=== PATIENT | female | born 1990 | race Caucasian/White ===

== ENCOUNTER → 2020-06-27 15:11 | Outpatient (CLI) | payer OTHER, SELFPAY ==
--- NOTE | ~2020-06-27 | US_ITS ---
EXAMINATION: US OB /maternal detail DATE: 06/27/2020 15:52 INDICATION: anatomic survey. TECHNIQUE: Real-time ultrasound of the pelvis was performed. COMPARISON: None. FINDINGS: There is a single living fetus in vertex presentation. The placenta is anterior, 2.9 cm from the cer vix. heart rate is 147 beats per minute (bpm). The amniotic fluid volume is subjectively normal . The following biometric data were obtained: Biparietal diameter (BPD): 4.5 cm; head circumference (HC): 17.1 cm; abdominal circumference (AC): 14 .1 cm; femur length (FL): 2.9 cm. These measurements are concordant. Estimated weight is 284 g +/- 43 g, which correlates with 30th percentile when 11/17/20 is used as estimated date of delivery. As single measurements, these parameters are each equal to the following estimated gestational ages w ith ranges of +/- 2 standard deviations: BPD: 19 weeks 3 days (17 weeks 5 days - 21 weeks 1 days). HC: 19 weeks 5 days (18 weeks 1 days - 21 weeks 1 days). AC: 19 weeks 3 days (17 weeks 3 days - 21 weeks 4 days). FL: 19 weeks 0 days (17 weeks 1 days - 20 weeks 5 days). estimated gestational age based solely on measurements from this exam is 19 weeks 3 days +/- 1 weeks 3 days. The cerebral ventricles, cerebellum, cisterna magna, nuchal fold, and visualized portions of the spin e are normal. The diaphragm, stomach, kidneys, and bladder are normal. There are two umbilical arteri es to yield a 3-vessel cord. The cord insertion is normal. IMPRESSION: 1. Single living fetus in vertex presentation. 2. Estimated weight is 284 g +/- 43 g, which correlates with 30th percentile when 11/17/20 is u sed as estimated date of delivery. 3. heart not well visualized. Otherwise normal anatomic survey. Reviewed, dictated and finalized at location A. UNTING PROFESSIONAL IMPRESSION: 1. Single living fetus in vertex presentation. 2. Estimated weight is 284 g +/- 43 g, which correlates with 30th percen tile when 11/17/20 is used as estimated date of delivery. 3. heart not well visualized. Otherwise normal anatomic survey.
== END ==
PROVIDERS: Visit Provider Obstetrics & Gynecology
DX: Z34.82 Encounter for supervision of other normal pregnancy, second trimester (principal); Z3A.19 19 weeks gestation of pregnancy
CPT/HCPCS: 76805

== ENCOUNTER 2020-11-20 17:12 | Inpatient (IN) | payer OTHER, SELFPAY ==
[2020-11-20] VITALS (12 sets, daily range): BP systolic 128–157; BP diastolic 66–91; PULSE 87–103; RESP 18; TEMP 36.2–37; BMI 34.4
--- NOTE | 2020-11-20 17:12 | LDADM ---
This patient, Heidi Inman, was admitted to Labor/Delivery/Recovery 109 on 11/20/20 at 17:12. Plans for labor, pain management and were discussed with patient. Patient/family oriented to hospital policies and general routines including ID bracelet, bed and alarms, visiting hours, pain management, procedures, bathroom and other care routines, personal items, smoking policy, room service/diet and guest tray routines, security routines, and visiting hours. Patient/Family are encouraged to report perceived risks to care and to ask questions if they do not understand what they are told or what they should do. See OBIX for further documentation.
[2020-11-20] MEDS: DINOPROSTONE 10 MG VAG INSERT VAGINAL (18:15)
[2020-11-20 18:26] LABS: Basophils Percent Auto 0.3 % (0.2-1.2); Eosinophils Absolute Auto 0.1 K/mm3 (0-0.3); Eosinophils Percent Auto 0.5 % (0-4.4); Hematocrit 35.3 % (37.0-47.0); Hemoglobin 11.9 g/dL (12.0-15.0); Immature Granulocyte Percent A 0.8 % (0-0.5); Lymphocytes Absolute Auto 2.28 K/mm3 (0.9-3.2); Lymphocytes Percent Auto 19.1 % (18.3-44.2); Mean Corpuscular HGB Conc 33.7 g/dl (32-36); Mean Corpuscular Hemoglobin 33.4 pg (26-34); Mean Corpuscular Volume 99.2 fl (80-100); Mean Platelet Volume 12.6 fl (7.4-10.4); Neutrophils Absolute Auto 8.5 K/mm3 (1.3-6.7); Neutrophils Percent Auto 71.3 % (45.5-73.1); Platelet Count Result 174 k/mm3 (150-375); Red Blood Count 3.56 M/mm3 (4.2-5.4); Red Cell Distribution Width 13.2 % (11.5-14.5); White Blood Count 11.9 K/mm3 (4.5-10.0)
[2020-11-20] MEDS: ACETAMINOPHEN 500 MG TABLET 1000 MG PO (21:59)
[2020-11-20] MEDS: diphenhydrAMINE HCl CAP 25 MG CAPSULE 50 MG PO (21:59)
[2020-11-20] MEDS: ONDANSETRON INJ 4 MG/2 ML VIAL IV PUSH (22:49)
[2020-11-20] MEDS: fentaNYL CITRATE INJ (*CRX) 100 MCG/2 ML VIAL IV PUSH (23:01)
[2020-11-20] MEDS: LACTATED RINGERS 1,000 ML 125 ML IV CONT (23:12)
[2020-11-21] VITALS (160 sets, daily range): BP systolic 99–156; BP diastolic 56–118; PULSE 74–112; RESP 16–18; TEMP 36.2–37.3; O2SAT 98–100
[2020-11-21] MEDS: fentaNYL CITRATE INJ (*CRX) 100 MCG/2 ML VIAL IV PUSH (00:20)
[2020-11-21] MEDS: LACTATED RINGERS 1,000 ML 125 ML IV CONT ×2 (00:59→01:51)
--- NOTE | 2020-11-21 01:46 | WPDANESEPPF ---
Anes - Initial Pre Proc Eval Date/Time: 11/21/20 01:06 Surgeon: Tomi Kolb MD Pre Op Diagnosis: Induction of Labor Patient Data Age: 30 Gender: F Height: 1.63 m Weight: 91 kg Last Vital Signs Temp 36.2 C L 11/20/20 22:08 Pulse 96 11/21/20 01:45 Resp 18 11/20/20 22:08 BP 137/82 11/21/20 01:45 Pulse Ox 99 11/21/20 01:46 Allergies Allergy/AdvReac Type Severity Reaction Status Date / Time Penicillins Allergy Unknown Hives Verified 12/30/19 10:13 Home Medications Medication Instructions Recorded Confirmed Type PNV cmb#95-ferrous fumarate-FA 1 tablet PO DAILY 11/10/20 11/10/20 History [] lansoprazole 15 mg PO DAILY 11/10/20 11/10/20 History Laboratory Tests 11/20/20 11/20/20 11/20/20 18:16 18:16 18:16 WBC 11.9 K/mm3 H K/mm3 (4.5-10.0) RBC 3.56 M/mm3 L M/mm3 (4.2-5.4) Hgb 11.9 g/dL L g/dL (12.0-15.0) Hct 35.3 % L % (37.0-47.0) MCV 99.2 fl fl (80-100) MCH 33.4 pg pg (26-34) MCHC 33.7 g/dl g/dl (32-36) RDW 13.2 % % (11.5-14.5) Plt Count 174 k/mm3 k/mm3 (150-375) MPV 12.6 fl H fl (7.4-10.4) Immature Gran % (Auto) 0.8 % H % (0-0.5) Neut % (Auto) 71.3 % % (45.5-73.1) Lymph % (Auto) 19.1 % % (18.3-44.2) [place] % (Auto) 8.0 % % (2.6-8.5) Eos % (Auto) 0.5 % % (0-4.4) Baso % (Auto) 0.3 % % (0.2-1.2) Lymph # (Auto) 2.28 K/mm3 K/mm3 (0.9-3.2) [place] # (Auto) 1.0 K/mm3 H K/mm3 (0.1-0.6) Eos # (Auto) 0.1 K/mm3 K/mm3 (0-0.3) Baso # (Auto) 0.0 K/mm3 K/mm3 (0.0-0.1) Abs Immat Gran (auto) 0.10 K/mm3 H K/mm3 (0.00-0.031) Absolute Neuts (auto) 8.5 K/mm3 H K/mm3 (1.3-6.7) Absolute Nucleated RBC 0.0 K/mm3 K/mm3 (0.0-0.012) Nucleated RBC % 0.0 % % (0.0-0.2) RPR Pending Blood Type O Positive Antibody Screen Negative Patient hx anesthesia problems: none Family hx anesthesia problems: none PMFSH Family History Family History Other No pertinent family history Social History Social History Smoking status: Never smoker Second hand tobacco smoke exposure: No Substance use: never Gender identity (if verbalized by the patient): Female Spiritual care concerns: No Anes - Eval Final PreProcedure Day of Procedure 11/21/20 01:46 Patient weight: overweight Heart: regular rate and rhythm Lungs: clear to auscultation and normal air movement Airway: Mallampati scale Neurological: alert and oriented ASA classification: II Emergent: no Anesthetic plan: proceed Anesthesia type and monitoring: regional epidural and standard monitoring Informed Consent: The patient's anesthetic plan and its attendant risks and benefits were discussed with the patient/family/POA. Questions were solicited and answers provided to the satisfaction of the patient/family/POA.
--- NOTE | 2020-11-21 08:40 | WPDOBADMIT ---
Obstetrics - Admit Note Admission Note: record reviewed. Additions to the history and/or subsequent changes in the physical findings follow. 30 y/o G1 at 39 4/7 weeks here for induction of labor. Cervidil overnight. She developed active labor and is now comfortable with an epidural. Had SROM. AVSS NST reactive TOCO: contractions every 2-4 min ABD soft, nontender, gravid, vertex EXT nontender Cervix 8/100/0 A: IUP at term, here for induction of labor. P: Augment labor as needed. Anticipate .
[2020-11-21] MEDS: OXYTOCIN 30 UNITS/NS 500 ML 30 UNITS/500 ML BAG IV CONT (09:04)
[2020-11-21 09:52] LABS: Rapid Plasma Reagin Non-Reactive (NonReactive)
--- NOTE | 2020-11-21 11:38 | P.PCNOB_ITS ---
OB - Delivery Note Procedure Delivery date: 11/21/20 Procedure: Induction method: per cervidil protocol Delivery monitor: external FHT and external uterine Route of delivery: Laceration Description: Perineal - 2nd Degree Delivery repair: vicryl (3-0) Specimen: Yes (cord blood) Quantitative Blood Loss (ml): 260 Anesthesia type: Epidural Disposition: PACU Complications: None Narrative: 30 y/o G1 at 39 4/7 week gestation who presented to the hospital for induction of labor. Cervidil was placed. She developed active labor. She received an epidural for pain control. She had SROM. Her labor progressed and her cervix dilated completely. She pushed with good effort and delivered the 's head to the perineum. A loose nuchal cord was reduced and the body de livered. The nose and mouth were bulb suctioned. After a delay, the cord was clamped and cut. The was handed off the field. Cord blood was collected. The placenta delivered spontaneously and was grossly normal in appearance. The usual 3 vessel cord was noted. A second degree midline perineal laceration was sustained. This was reapproximated using 3 0 Vicryl in the usual layered fashion. Excellent hemostasis resulted as did excellent reapproximation of the normal anatomy. Needle and instrument counts were correct. The patient was taken to recovery room in stable condition. The went to the nursery in stable condition. I was present and scrubbed for the entire delivery. [place] Baby Date of : 11/21/20 Time of : 11:23 Weeks of gestation at delivery: 39 Infant gender: Female Weight (pounds): 7 Weight (ounces): 14 presentation: vertex position: Right Occiput Anterior Placenta delivery description: Spontaneous and Normal Configuration cord vessel description: 3 Vessels, Nuchal Cord and Delayed Cord Clamping score one minute: 9 score five minutes: 9
[2020-11-21] MEDS: OXYTOCIN 30 UNITS/NS 500 ML 30 UNITS/500 ML BAG 125 UNITS IV CONT (11:57)
[2020-11-21] MEDS: IBUPROFEN 600 MG TABLET PO ×2 (12:20→18:04)
[2020-11-21] MEDS: BENZOCAINE 20% AER SPR (*SP) 56 GM CAN 1 SPRAY TOPICAL (12:22)
[2020-11-21] MEDS: WITCH HAZEL 40 PADS 1 PAD TOPICAL (12:22)
--- NOTE | 2020-11-21 13:55 | PC.NURSE ---
Patient transferred to post room #291 per wheelchair from labor and delivery. Support person present. Oriented to unit, room, information board, rooming in, admission packet and security measures. Patient verbalizes understanding.
[2020-11-21] MEDS: ACETAMINOPHEN 325 MG TABLET 650 MG PO ×2 (14:47→20:42)
--- NOTE | 2020-11-21 15:15 | PC.NURSE ---
Consulted with patient, mother re ports infant fed for first feeding. was sucking on her tongue, needing several attempts to latch correctly. Reviewed infant feeding cues, frequencies, duration of feedings, feeding elimination flow sheet, and signs of adequate intake. Demonstrated stimulation techniques to wake for feeding. Assisted with to breast. Reviewed positioning/alignment in cross cradle, holding breast in U hold and guided asymmetrical latch on. Infant was fussy made several attempts to latch without a successful latch. Infant then sleepy with not waking for attempts. Suggested skin to skin and attempt again in 30 minutes. Requested mother call out for for assist.
[2020-11-21] MEDS: DOCUSATE SODIUM 100 MG CAPSULE PO (18:04)
[2020-11-21] MEDS: diphenhydrAMINE HCl CAP 25 MG CAPSULE 50 MG PO (20:42)
--- NOTE | 2020-11-21 23:45 | PM.OBDSVD ---
DS: Admitting Diagnosis Admitting Diagnosis Admitting Diagnosis: IUP at 39 4/7 weeks DS: Discharge Diagnosis Discharge Diagnosis (1) (normal spontaneous vaginal delivery): Code(s): O80 - Encounter for full-term uncomplicated delivery Status: Acute OB - DS: Summary OB Procedures : None OB Procedures Intrapartum: Spontaneous Vag Delivery OB Procedures: : None DS: Data Data Completed and Pending Labs on day of discharge: Labs from last 24 hours 11/20/20 18:16 RPR Non-reactive Discharge Plan Discharge Attending physician on discharge: Tomi Kolb Discharging Clinician: Tomi Kolb Patient Disposition: Home, Self-Care Activity: pelvic rest Diet: regular Discharge Instructions: Call or return if temperature above 100.4? F, increased abdominal pain, increased vaginal bleeding or any new problems. Stand Alone Forms: General Discharge Information Follow-up/Referrals: Tomi Kolb MD [Physician] - 6 Weeks Discharge Medications: New ibuprofen 600 mg tablet 600 mg PO Q6H PRN (Reason: cramps) Qty: 30 RF: 0 ferrous sulfate [Iron (ferrous sulfate)] 325 mg (65 mg iron) tablet 325 mg PO DAILY Qty: 30 RF: 0 docusate sodium [Colace] 100 mg capsule 100 mg PO BID PRN (Reason: constipation) Qty: 60 RF: 0 No Action PNV cmb#95-ferrous fumarate-FA [] 28 mg iron- 800 mcg Tablet 1 tablet PO DAILY RF: 0 lansoprazole 15 mg Capsule,Delayed Release(Dr/Ec) 15 mg PO DAILY RF: 0 Date of admission: 11/20/20 17:12 Primary Care Provider: Bret Carpenter Admitting Provider: Tomi Kolb Attending physician on admission: Tomi Kolb Condition: Stable
[2020-11-22] MEDS: IBUPROFEN 600 MG TABLET PO ×4 (00:20→21:05)
[2020-11-22] MEDS: ACETAMINOPHEN 325 MG TABLET 650 MG PO ×4 (02:51→22:40)
[2020-11-22 04:00] VITALS: BP 135/75; PULSE 93; RESP 16; TEMP 37; O2SAT 99
[2020-11-22 05:17] LABS: Hematocrit 29.3 % (37.0-47.0); Hemoglobin 9.9 g/dL (12.0-15.0)
[2020-11-22] MEDS: DOCUSATE SODIUM 100 MG CAPSULE PO ×2 (08:07→17:06)
[2020-11-22] MEDS: POLYSACCHARIDE IRON COMPLEX 150 MG CAPSULE PO ×2 (08:07→17:06)
[2020-11-22] MEDS: MULTIVIT/MIN/PREN/FOL AC/IRON TABLET 1 TAB PO (08:07)
--- NOTE | 2020-11-22 08:45 | WPDANESPN ---
Anes - Prog Note Post-Op Date/Time: 11/22/20 08:45 Cardiovascular status: normal Respiratory status: normal Airway patency: baseline Mental status: baseline Post-Op hydration status: normal Vital Signs: Last Vital Signs Temp 37.0 C 11/22/20 04:00 Pulse 93 11/22/20 04:00 Resp 16 11/22/20 04:00 BP 135/75 11/22/20 04:00 Pulse Ox 99 11/22/20 04:00 Pain Score (VAS): 05/15 I/O: Intake & Output 11/21/20 11/22/20 11/22/20 23:59 07:59 15:59 Intake Total 500 Balance 500 Laboratory Tests 11/22/20 03:52 11/20/20 11/22/20 18:16 03:52 Hgb 9.9 L Hct 29.3 L RPR Non-reactive Post-procedural complaints: none Patient Feedback: Patient satisfied with anesthetic care.
[2020-11-22 09:10] VITALS: BP 126/76; PULSE 92; RESP 18; TEMP 36.6; O2SAT 100
--- NOTE | 2020-11-22 10:30 | PC.NURSE ---
Mother called out for assist with feeding, reporting tenderness to nipples. Reviewed feeding cues, frequencies, duration of feedings, feeding elimination flow sheet, and signs of adequate intake. Demonstrated stimulation techniques to wake for feeding. Assisted with to breast. Reviewed positioning/alignment in cross cradle, holding breast in ?U? hold and guided asymmetrical latch on. Discussed rational for each. able to latch correctly after several attempts. Infant will eagerly attempt and draw nipple in, then quickly release latch. Once on correctly, infant nursed eagerly, with steady draws and frequent swallowing noted. Suggested mother stimulate while feeding to increase stimulate, increase intake and to assist with maintaining deep latch. Reviewed signs of a correct latch, effective nursing and suck swallow ratio. Infant would slip to shallow latch, mother reports tenderness. Demonstrated how to adjust latch more deeply while feeding. Mother reports she can feel change in latch and has no tenderness. Nipple care reviewed of lanolin after feedings, warm compresses as needed. Instructed mother to call out for RN assistance if she is unable to latch for feeding or she has discomfort with nursing.
--- NOTE | 2020-11-22 12:10 | PC.NURSE ---
Mother called out for assist with feeding, reporting has been feeding on and off for past hours. Reviewed cluster feedings and advised this is normal and may follow with a sleepy period. Infant has not had a wet in 24 hours. Mother is concerned need supplementation. Advised to give small amounts if she chooses to supplement. Report to primary RN concerning output. . Assisted with to breast. Reviewed positioning/alignment in cross cradle, holding breast in ?U? hold and guided asymmetrical latch on. Discussed rational for each. able to latch correctly. Infant nursed eagerly, with steady draws and frequent swallowing noted. Suggested mother stimulate while feeding to increase stimulate, increase intake and to assist with maintaining deep latch. Reviewed signs of a correct latch, effective nursing and suck swallow ratio. was able to maintain latch without discomfort to mother. Nipple care reviewed of lanolin after feedings, warm compresses as needed. Instructed mother to call out for RN assistance if she is unable to latch infant for feeding or she has discomfort with nursing.
--- NOTE | 2020-11-22 13:10 | PM.OBPNVD ---
OB - PN: Subj Subjective Date/time seen: 11/22/20 13:10 Narrative: Pain OK. OB - PN: Obj Data Labs CBC & Chem 7: 11/22/20 03:52 Labs: Laboratory Results - last 24 hr 11/22/20 03:52 Hgb 9.9 L Hct 29.3 L OB - PN A/P Plan Comments: A: PPD#1, doing well. P: Routine care. Exam Psych: Other: AVSS ABD soft, nontender, fundus firm EXT nontender
[2020-11-22 20:00] VITALS: BP 135/80; PULSE 95; RESP 16; TEMP 36.9; O2SAT 99
[2020-11-22] MEDS: diphenhydrAMINE HCl CAP 25 MG CAPSULE 50 MG PO (21:05)
[2020-11-23] MEDS: IBUPROFEN 600 MG TABLET PO ×2 (03:01→11:51)
[2020-11-23] MEDS: ACETAMINOPHEN 325 MG TABLET 650 MG PO (05:18)
[2020-11-23] MEDS: MULTIVIT/MIN/PREN/FOL AC/IRON TABLET 1 TAB PO (07:57)
[2020-11-23] MEDS: DOCUSATE SODIUM 100 MG CAPSULE PO (07:58)
[2020-11-23] MEDS: POLYSACCHARIDE IRON COMPLEX 150 MG CAPSULE PO (07:58)
--- NOTE | 2020-11-23 09:14 | PM.OBPNVD ---
OB - PN: Subj Subjective Date/time seen: 11/23/20 09:14 Narrative: Pain OK. Would like to go home. OB - PN: Obj Data Labs CBC & Chem 7: 11/22/20 03:52 OB - PN A/P Plan Comments: A: PPD#2, doing well. P: Home to f/u 6 weeks. Exam Psych: Other: AVSS ABD soft, nontender, fundus firm EXT nontender
[2020-11-23 09:30] VITALS: BP 135/74; PULSE 96; RESP 16; TEMP 36.6; O2SAT 99
--- NOTE | 2020-11-23 11:15 | PC.NURSE ---
Mother called out for assist with latching to left breast. Mother feels her milk is transitioning in and areola is firm. Reviewed to massage area with warm compresses then self express to soften before infant latches. Areola softened with self expression and massage. Mother was able to independently latch with appropriate positioning/alignment. She denied any nipple discomfort, with this latch. Infant is eagerly feeding nursing with long draws and freq swallowing noted. Mother is feeding as required and waking to feed if needed. Infant has had at least 8 effective feedings in the past 24 hours, and is currently meeting outcomes for weight, output, jaundice and feeding frequencies. Mother states she feels confident to continue effective at home. Reviewed transition to breast milk, signs of adequate intake, and engorgement/relief. Instructed to call ICP if intake/output less than required. Reviewed regular medications mother is taking. Information provided per [place]. Reviewed community resources on the [facility] website and in the Mom/Baby guide. Information on outpatient services provided. Mother has no further questions at this time.
[2020-11-24 11:03] VITALS: BP 136/83; PULSE 85; RESP 20; TEMP 37.2; O2SAT 100
== END 2020-11-23 13:36 | disposition home or self-care (01) | DRG 807 ==
LOC: ANHLDR 17:17 → ANHOB2 11-21 14:05
PROVIDERS: Admitting Provider Obstetrics & Gynecology; PCP Internal Medicine; Visit Provider Obstetrics & Gynecology
DX: O77.0 Labor and delivery complicated by meconium in amniotic fluid (principal); Z37.0 Single live birth; Z3A.40 40 weeks gestation of pregnancy; O70.1 Second degree perineal laceration during delivery
CPT/HCPCS: 36415; 85014; 85018; 85025; 86592; 86850; 86900; 86901; A9270; J2405; J2590; J2795; J3010; J7120

== ENCOUNTER 2022-03-27 17:48 | Emergency (ER) | payer OTHER, SELFPAY ==
--- NOTE | 2022-03-27 17:54 | ED.URI ---
HPI - URI/Sore Throat General Chief Complaint: Upper Respiratory Infection Stated Complaint: headcold pressure and ears throat Time Seen by Provider: 03/27/22 17:54 Source: patient and RN notes reviewed History of Present Illness HPI Narrative: patient is a 32-year-old female who presents to urgent care with complaints of severe head congestion, postnasal drainage, bilateral ear pressure and sore throat. Patient states that she does have a mild nonproductive cough. States that she has had it for approximately 2 weeks. Patient does have history of sinus surgery. Patient has been using Sudafed, Tylenol and Flonase without much relief. Denies any fevers. No other acute complaints. No acute distress noted. Patient aware of the plan care. Some parts of this dictation were generated by voice recognition software and may contain typographical and/or grammatical inaccuracies. Related Data Allergies Allergy/AdvReac Type Severity Reaction Status Date / Time Penicillins Allergy Unknown Hives Verified 12/30/20 07:53 Review of Systems Review of Systems: CONSTITUTIONAL: Denies fever, chills, or sweats. EYES: Denies visual changes, redness, or discharge. ENT: Reports of sinus pressure, bilateral otalgia, sore throat, postnasal drainage CARDIOVASCULAR: Denies chest pain, palpitations, or edema. RESPIRATORY: reports of nonproductive cough without dyspnea GASTROINTESTINAL: Denies abdominal pain, nausea, vomiting, or diarrhea. GENITOURINARY: Denies dysuria or hematuria. SKIN: Denies rash or itching. MUSCULOSKELETAL: Denies back pain, joint pain, or myalgia. NEUROLOGIC: reports of headache All other systems reviewed are negative, except as documented in HPI. PMFSH Family History Family History Other No pertinent family history Social History Social History (Updated 12/30/20 @ 07:52 by Ana Shelton CNA) Smoking status: Never smoker Second hand tobacco smoke exposure: No Alcohol intake: current Substance use: never Gender identity (if verbalized by the patient): Female Spiritual care concerns: No Comments At the time of my signature, I reviewed and agree with the nursing past medical, surgical, social, and family history. There is no relevant family history pertinent to the patient complaint. Exam Narrative: GENERAL: This is a well-nourished, well-developed patient, in no apparent distress. HEAD: normocephalic, atraumatic. moderate frontal sinus tenderness EYES: PERRL. Sclera clear/white. Vision is grossly intact. EARS: External ears normal, auditory canals clear and without drainage, bilateral eustachian tube dysfunction.TMs normal without perforation. Hearing grossly intact. NOSE: External nose normal with no obvious nasal discharge. bilateral erythema nares with clear yellow rhinorrhea THROAT: Mucous membranes moist, posterior pharynx clear. moderate postnasal drainage. NECK: Neck supple, non-tender without lymphadenopathy, masses or thyromegaly. CARDIOVASCULAR: Regular rate and rhythm without murmurs, gallops, or rubs. RESPIRATORY: Clear to auscultation. Breath sounds equal bilaterally. No wheezes, rales, or rhonchi. SKIN: warm, intact with no suspicious lesions or rash, good texture and turgor. NEURO: awake, alert, and oriented to person, place and time. There were no obvious focal neurologic abnormalities. EXTREMITIES: No clubbing, cyanosis, or edema. Course Course Level of Care: Express Care Visit Vital Signs Vital signs: Vital Signs Temperature 97.7 F 03/27/22 18:13 Pulse Rate 79 03/27/22 18:13 Respiratory Rate 16 03/27/22 18:13 Blood Pressure 140/81 03/27/22 18:13 Pulse Oximetry 97 03/27/22 18:13 Oxygen Delivery Room Air 03/27/22 18:13 Temperature 97.7 F 03/27/22 18:13 Pulse Rate 79 03/27/22 18:13 Respiratory Rate 16 03/27/22 18:13 Blood Pressure 140/81 03/27/22 18:13 Pulse Oximetry 97 03/27/22
[2022-03-27 18:13] VITALS: BP 140/81; PULSE 79; RESP 16; TEMP 36.5; O2SAT 97
== END 2022-03-27 18:17 | disposition home or self-care (01) ==
PROVIDERS: Emergency Provider Nurse Practitioner Family
DX: J32.9 Chronic sinusitis, unspecified (principal)
CPT/HCPCS: 99213; G0463

== ENCOUNTER 2022-04-05 08:22 | Outpatient (CLI) | payer OTHER, SELFPAY ==
[2022-04-05 18:54] LABS: Alanine Aminotransferase 18 U/L (6-35); Albumin Level 4.5 g/dL (3.5-5.1); Alkaline Phosphatase 53 U/L (38-126); Anion Gap 9 mmol/L (8-16); Aspartate Amino Transferase 51 U/L (14-36); Bilirubin,Total 0.8 mg/dL (0.2-1.3); Blood Urea Nitrogen 17 mg/dL (7-17); Calcium 8.6 mg/dL (8.4-10.2); Carbon Dioxide 24 mmol/L (22-30); Chloride 106 mmol/L (98-107); Cholesterol 170 mg/dL (0-200); Estimated Glomerular Filt Rate > 60; Glucose 74 mg/dL (65-110); HDL Direct 46 mg/dL; Potassium 4.3 mmol/L (3.4-5.0); Sodium 139 mmol/L (137-145); Triglycerides 122 mg/dL (<150)
[2022-04-05 18:57] LABS: Hematocrit 40.4 % (37.0-47.0); Hemoglobin 13.5 g/dL (12.0-15.0); Mean Corpuscular HGB Conc 33.4 g/dl (32-36); Mean Corpuscular Volume 95.7 fl (80-100); Mean Platelet Volume 10.8 fl (7.4-10.4); Platelet Count Result 304 k/mm3 (150-375); Red Blood Count 4.22 M/mm3 (4.2-5.4); Red Cell Distribution Width 12.1 % (11.5-14.5); White Blood Count 7.2 K/mm3 (4.5-10.0)
[2022-04-05 19:05] LABS: LDL Cholesterol Direct 82 mg/dL
[2022-04-05 19:20] LABS: Thyroid Stimulating Hormone 0.917 uIU/mL (0.465-4.680)
== END 2022-04-05 08:23 | disposition home or self-care (01) ==
LOC: ANHBWCLAB 08:25
PROVIDERS: PCP Family Medicine; Visit Provider Family Medicine
DX: Z00.00 Encounter for general adult medical examination without abnormal findings (principal); I47.1 Supraventricular tachycardia; J30.2 Other seasonal allergic rhinitis; E66.9 Obesity, unspecified; K21.9 Gastro-esophageal reflux disease without esophagitis; Q23.1 Congenital insufficiency of aortic valve; N13.30 Unspecified hydronephrosis; N20.0 Calculus of kidney
CPT/HCPCS: 36415; 80053; 80061; 84443; 85027

== ENCOUNTER 2022-07-04 09:38 | Outpatient (CLI) | payer BC, OTHER, SELFPAY ==
[2022-07-04 20:24] LABS: Alanine Aminotransferase 20 U/L (6-35); Albumin Level 4.6 g/dL (3.5-5.1); Alkaline Phosphatase 62 U/L (38-126); Aspartate Amino Transferase 61 U/L (14-36); Bilirubin,Total 0.5 mg/dL (0.2-1.3)
[2022-07-04 21:34] LABS: Hepatitis B Surface Antigen Negative (Negative)
[2022-07-04 21:40] LABS: HAV RESULT Negative (Negative); Hepatitis B Core IgM Result Negative (Negative)
[2022-07-04 21:52] LABS: Hepatitis C Virus Antibody Negative (Negative)
== END 2022-07-04 09:39 | disposition home or self-care (01) ==
LOC: ANHBWCLAB 09:39
PROVIDERS: PCP Family Medicine; Visit Provider Family Medicine
DX: R74.8 Abnormal levels of other serum enzymes (principal)
CPT/HCPCS: 36415; 80074; 80076

== ENCOUNTER 2023-02-27 15:27 | Outpatient (CLI) | payer BC, OTHER, SELFPAY ==
[2023-02-27 20:37] LABS: Alanine Aminotransferase 19 U/L (6-35); Albumin Level 4.5 g/dL (3.5-5.1); Alkaline Phosphatase 39 U/L (38-126); Aspartate Amino Transferase 71 U/L (14-36); Bilirubin,Total 0.6 mg/dL (0.2-1.3)
== END 2023-02-27 15:28 | disposition home or self-care (01) ==
LOC: ANHBWCLAB 15:32
PROVIDERS: PCP Family Medicine; Visit Provider Family Medicine
DX: R74.01 Elevation of levels of liver transaminase levels (principal)
CPT/HCPCS: 36415; 80076

== ENCOUNTER 2023-04-08 08:56 | Outpatient (CLI) | payer BC, OTHER, SELFPAY ==
[2023-04-08 19:28] LABS: Hematocrit 36.7 % (37.0-47.0); Hemoglobin 11.8 g/dL (12.0-15.0); Mean Corpuscular HGB Conc 32.2 g/dl (32-36); Mean Corpuscular Hemoglobin 32.8 pg (26-34); Mean Corpuscular Volume 101.9 fl (80-100); Mean Platelet Volume 11.7 fl (7.4-10.4); Platelet Count Result 171 k/mm3 (150-375); Red Cell Distribution Width 12.1 % (11.5-14.5); White Blood Count 2.9 K/mm3 (4.5-10.0)
[2023-04-08 21:28] LABS: Cholesterol 123 mg/dL (0-200); HDL Direct 50 mg/dL; Triglycerides 75 mg/dL (<150)
[2023-04-08 21:45] LABS: LDL Cholesterol Direct 52 mg/dL
== END 2023-04-08 08:57 | disposition home or self-care (01) ==
PROVIDERS: PCP Family Medicine; Visit Provider Family Medicine
DX: Z00.00 Encounter for general adult medical examination without abnormal findings (principal); G25.81 Restless legs syndrome; G43.101 Migraine with aura, not intractable, with status migrainosus
CPT/HCPCS: 36415; 80061; 85027

== ENCOUNTER 2024-01-30 08:40 | Outpatient (RCR) | payer BC, OTHER, SELFPAY ==
[2023-12-17 12:20] VITALS: BP 123/62; PULSE 103
[2023-12-24 12:41] VITALS: BP 114/71; PULSE 103
[2023-12-31 10:18] VITALS: BP 120/54; PULSE 102
[2024-01-07 07:40] VITALS: BP 123/71; PULSE 109
[2024-01-16 09:51] VITALS: BP 126/70; PULSE 95
[2024-01-21 17:15] VITALS: BP 124/79; PULSE 97
[2024-01-30 10:11] VITALS: BP 118/75; PULSE 93
== END 2024-03-09 09:54 | disposition home or self-care (01) ==
LOC: ANHOBOP 08:40
PROVIDERS: PCP Family Medicine; Visit Provider Obstetrics & Gynecology
DX: Z34.93 Encounter for supervision of normal pregnancy, unspecified, third trimester (principal); Z3A.32 32 weeks gestation of pregnancy
CPT/HCPCS: 59025

== ENCOUNTER 2024-02-07 05:07 | Inpatient (IN) | payer BC, OTHER, SELFPAY ==
[2024-02-07] VITALS (67 sets, daily range): BP systolic 111–153; BP diastolic 55–94; PULSE 76–108; RESP 18; TEMP 36.1–36.8; O2SAT 97–100; BMI 36.7
--- NOTE | 2024-02-07 05:50 | LDADM ---
This patient, Heidi Inman, was admitted to Labor/Delivery/Recovery 104 on 02/07/24 at 05:07. Plans for labor, pain management and were discussed with patient. Patient/family oriented to hospital policies and general routines including ID bracelet, bed and alarms, visiting hours, pain management, procedures, bathroom and other care routines, personal items, smoking policy, room service/diet and guest tray routines, security routines, and visiting hours. Patient/Family are encouraged to report perceived risks to care and to ask questions if they do not understand what they are told or what they should do. See OBIX for further documentation.
[2024-02-07 05:59] LABS: Basophils Percent Auto 0.3 % (0.2-1.2); Eosinophils Absolute Auto 0.1 K/mm3 (0-0.3); Eosinophils Percent Auto 0.6 % (0-4.4); Hematocrit 35.2 % (37.0-47.0); Immature Granulocyte Absolute 0.13 K/mm3 (0.00-0.031); Immature Granulocyte Percent A 1.1 % (0-0.5); Lymphocytes Absolute Auto 2.44 K/mm3 (0.9-3.2); Lymphocytes Percent Auto 21.1 % (18.3-44.2); Mean Corpuscular HGB Conc 34.1 g/dl (32-36); Mean Corpuscular Hemoglobin 33.2 pg (26-34); Mean Corpuscular Volume 97.5 fl (80-100); Mean Platelet Volume 11.9 fl (7.4-10.4); Monocytes Absolute Auto 0.8 K/mm3 (0.1-0.6); Monocytes Percent Auto 6.5 % (2.6-8.5); Neutrophils Absolute Auto 8.2 K/mm3 (1.3-6.7); Neutrophils Percent Auto 70.4 % (45.5-73.1); Platelet Count Result 144 k/mm3 (150-375); Red Blood Count 3.61 M/mm3 (4.2-5.4); Red Cell Distribution Width 13.6 % (11.5-14.5); White Blood Count 11.6 K/mm3 (4.5-10.0)
[2024-02-07] MEDS: LACTATED RINGERS 1,000 ML 125 ML IV CONT ×3 (06:33→13:44)
[2024-02-07] MEDS: OXYTOCIN 30 UNITS/NS 500 ML 30 UNITS/500 ML BAG IV CONT (06:33)
[2024-02-07 06:47] LABS: Glucose Point of Care 85 mg/dl (65-105)
[2024-02-07 06:50] LABS: HIV 1/2 Ab P24 Ag Result Negative (Negative)
[2024-02-07 07:29] LABS: Add Urine Microscopic? NO; Appearance Urine Clear (Clear); Bilirubin Urine Negative (Negative); Blood Urine Negative (Negative); Color Urine Yellow (Yellow); Glucose Urine UA Negative (Negative); Ketones Urine Negative (Negative); Leukocyte Esterase Ur Negative LEU/UL (Negative); Nitrate Urine Negative (Negative); Protein Urine Negative (Negative); Specific Grav Ur 1.006 (1.001-1.035); Urobilinogen Urine 0.2 mg/dL (<2.0); pH Urine 6.5 (5.0-9.0)
--- NOTE | 2024-02-07 08:40 | WPDOBADMIT ---
Obstetrics - Admit Note Admission Note: record reviewed. Additions to the history and/or subsequent changes in the physical findings follow. 34 y/o at 40 weeks here for scheduled induction of labor. GBS neg. A1DM, well-controlled. 2VC. AVSS NST reactive TOCO: contractions irregularly ABD soft, nontender, gravid, vertex EXT nontender Cervix 2-3/50/-2. AROM with clear fluid. Accucheck 86 A: IUP at 40 weeks, A1DM. P: Oxytocin. Monitor accuchecks. Anticipate .
[2024-02-07 09:08] LABS: Rapid Plasma Reagin Non-Reactive (NonReactive)
--- NOTE | 2024-02-07 10:45 | WPDANESEPP ---
Anes - Eval Pre Procedure Procedure: labor epidural Date/Time: 02/07/24 10:45 Surgeon: Cortes Preop Diagnosis: Pain during labor Pre Op Diagnosis: IOL Patient Data Age: 34 Gender: F Height: 1.63 m Weight: 97 kg Last Vital Signs Pulse 86 02/07/24 10:31 BP 141/74 H 02/07/24 10:31 Allergies Allergy/AdvReac Type Severity Reaction Status Date / Time Penicillins Allergy Unknown Hives Verified 04/08/23 08:00 Home Medications Medication Instructions Recorded Confirmed Type fluticasone propionate 50 1 - 2 spray intranasal DAILY PRN 03/27/21 01/21/24 Rx mcg/actuation nasal allergy symptoms #18.2 mL spray,suspension (Flonase Allergy Relief) aspirin 81 mg chewable tablet 1 tablet PO DAILY 01/21/24 01/21/24 History vit#24-iron amino acid 1 tablet PO DAILY 01/21/24 01/21/24 History chelat-folic acid 30 mg-975 mcg tablet Laboratory Tests 02/07/24 02/07/24 02/07/24 05:22 06:43 07:13 WBC 11.6 H K/mm3 (4.5-10.0) RBC 3.61 L M/mm3 (4.2-5.4) Hgb 12.0 g/dL (12.0-15.0) Hct 35.2 L % (37.0-47.0) MCV 97.5 fl (80-100) MCH 33.2 pg (26-34) MCHC 34.1 g/dl (32-36) RDW 13.6 % (11.5-14.5) Plt Count 144 L k/mm3 (150-375) MPV 11.9 H fl (7.4-10.4) Immature Gran % (Auto) 1.1 H % (0-0.5) Neut % (Auto) 70.4 % (45.5-73.1) Lymph % (Auto) 21.1 % (18.3-44.2) [place] % (Auto) 6.5 % (2.6-8.5) Eos % (Auto) 0.6 % (0-4.4) Baso % (Auto) 0.3 % (0.2-1.2) Lymph # (Auto) 2.44 K/mm3 (0.9-3.2) [place] # (Auto) 0.8 H K/mm3 (0.1-0.6) Eos # (Auto) 0.1 K/mm3 (0-0.3) Baso # (Auto) 0.0 K/mm3 (0.0-0.1) Abs Immat Gran (auto) 0.13 H K/mm3 (0.00-0.031) Absolute Neuts (auto) 8.2 H K/mm3 (1.3-6.7) Absolute Nucleated RBC 0.000 K/mm3 (0.0-0.012) Nucleated RBC % 0.0 % (0.0-0.2) POC Capillary Glucose 85 mg/dl (65-105) Urine Color Yellow (Yellow) Urine Appearance Clear (Clear) Urine pH 6.5 (5.0-9.0) Ur Specific [place] 1.006 (1.001-1.035) Urine Protein Negative mg/dL (Negative) Urine Glucose (UA) Negative mg/dL (Negative) Urine Ketones Negative mg/dL (Negative) Ur Blood (Man) Negative (Negative) Urine Nitrate Negative (Negative) Urine Bilirubin Negative (Negative) Urine Urobilinogen 0.2 mg/dL (<2.0) Leukocyte Esterase Rfl Negative TRICE/UL (Negative) RPR Non-reactive (NonReactive) HIV 1&2 Ab/P24 Ag 4thGn Negative (Negative) Blood Type O Positive Antibody Screen Negative Patient hx anesthesia problems: none Family hx anesthesia problems: post op nausea/vomiting Results Review: All pre-operative results and documents have been reviewed as part of the pre-operative evaluation. [facility] Family History Family History Father History of ETOH abuse Grandparent History of ETOH abuse Grandparent Diabetes mellitus Other No pertinent family history Social History Social History Smoking status: Never smoker Second hand tobacco smoke exposure: No Alcohol intake: current Substance use: never Do You Feel Safe in your Home?: Yes Lack of Transportation: No Lack of Food: Never True Current Housing: I Have Housing Concerned About Future Housing: No Difficulty Paying Gas/Electric Bills: No Difficulty Paying for Meds: No Currently Unemployed: No Education: Bachelor's Degree Difficulty w/ Childcare or Family Care: No Gender identity (if verbalized by the patient): Female Spiritual care concerns: No
[2024-02-07 12:05] LABS: Glucose Point of Care 97 mg/dl (65-105)
--- NOTE | 2024-02-07 12:23 | PM.OBPNLAB ---
Pain Control Date/time seen: 02/07/24 12:23 Comments: Feeling more contractions. Pelvic Exam Dilation (cm): 3 Effacement (%): 50 station: -2 Comments: IUPC placed. Contractions Contraction frequency: 3 Contraction pattern: Regular Status status: Category l Assessment and Plan Comments: IUPC placed. Continue oxytocin.
[2024-02-07 14:00] LABS: Glucose Point of Care 83 mg/dl (65-105)
[2024-02-07 15:12] LABS: Glucose Point of Care 62 mg/dl (65-105)
[2024-02-07] MEDS: SODIUM CHLORIDE 0.9% IV 300 ML 600 ML I-UTERINE (15:33)
[2024-02-07 16:56] LABS: Glucose Point of Care 63 mg/dl (65-105)
--- NOTE | 2024-02-07 17:10 | PM.OBPNLAB ---
Pain Control Date/time seen: 02/07/24 17:10 Comments: Comfortable with epidural Pelvic Exam Dilation (cm): 10 Effacement (%): 100 station: +1 Contractions Contraction frequency: 3 Contraction pattern: Regular Status status: Category l Assessment and Plan Comments: Begin pushing.
--- NOTE | 2024-02-07 17:54 | P.PCNOB_ITS ---
OB - Vaginal Delivery Note Procedure Delivery date: 02/07/24 Events: Gestational Diabetes Induction method: Per Pitocin Protocol Delivery augmentation: Rupture of Membranes Delivery monitor: External FHT, External Uterine and Internal Uterine Route of delivery: Episiotomy description: None Laceration Description: Perineal - 2nd Degree Delivery repair: vicryl (3-0) Specimen: Yes (cord blood, placenta) Quantitative Blood Loss (ml): 450 Anesthesia type: Epidural Disposition: PACU Complications: None Narrative: 34 y/o at 40 weeks gestation who presented to the hospital for induction of labor. Oxytocin was administered intravenously. Amniotomy was performed with return of clear fluid. Accuchecks were normal throughout labor. She received an epidural for pain control. Her labor progressed and her cervix dilated completely. She pushed with good effort and delivered the infant's head to the perineum, followed by the body. The nose and mouth were bulb suctioned. After a delay, the cord was clamped and cut. The was handed off the field. Cord blood was collected. The placenta delivered spontaneously and was grossly normal in appearance. The usual 3 vessel cord was noted. A second degree midline perineal laceration was sustained. This was reapproximated using 3 0 Vicryl in the usual layered fashion. Excellent hemostasis resulted as did excellent reapproximation of the normal anatomy. Needle and instrument counts were correct. The patient was taken to recovery room in stable condition. The went to the nursery in stable condition. I was present and scrubbed for the entire delivery. [place] Baby Date of : 02/07/24 Time of : 17:28 Gestational Age by Date: 40 gender: Male Weight (pounds): 9 Weight (ounces): 2 presentation: vertex position: Left Occiput Anterior Placenta delivery description: Spontaneous and Normal Configuration Cord Vessel Description: 2 Vessels and Delayed Cord Clamping
--- NOTE | 2024-02-07 17:56 | PM.OBDSVD ---
DS: Admitting Diagnosis Discharge Date 02/09/24 Admitting Diagnosis IUP at 40 weeks 2 vessel cord A1DM DS: Discharge Diagnosis Discharge Diagnosis (1) (normal spontaneous vaginal delivery): Code(s): O80 - Encounter for full-term uncomplicated delivery Status: Acute (2) Absence of umbilical artery: Code(s): Q27.0 - Congenital absence and hypoplasia of umbilical artery Status: Acute (3) Gestational diabetes mellitus (GDM) affecting second : Code(s): O24.419 - Gestational diabetes mellitus in , unspecified control Status: Acute OB - DS: Summary OB Procedures : None OB Procedures Intrapartum: Spontaneous Vag Delivery OB Procedures: : None Peripartum Data Laceration Description: Perineal - 2nd Degree Episiotomy description: None Time Spent with Patient Time attestation: Total time spent providing and/or coordinating discharge services: DS: Data Data Completed and Pending Labs on day of discharge: Labs from last 24 hours 02/07/24 02/07/24 02/07/24 16:54 15:10 13:58 WBC RBC Hgb Hct MCV MCH MCHC RDW Plt Count MPV Immature Gran % (Auto) Neut % (Auto) Lymph % (Auto) [place] % (Auto) Eos % (Auto) Baso % (Auto) Lymph # (Auto) [place] # (Auto) Eos # (Auto) Baso # (Auto) Abs Immat Gran (auto) Absolute Neuts (auto) Absolute Nucleated RBC Nucleated RBC % POC Capillary Glucose 63 L 62 L 83 Urine Color Urine Appearance Urine pH Ur Specific [place] Urine Protein Urine Glucose (UA) Urine Ketones Ur Blood (Man) Urine Nitrate Urine Bilirubin Urine Urobilinogen Leukocyte Esterase Rfl RPR HIV 1&2 Ab/P24 Ag 4thGn Blood Type Antibody Screen 02/07/24 02/07/24 02/07/24 12:01 07:13 06:43 WBC RBC Hgb Hct MCV MCH MCHC RDW Plt Count MPV Immature Gran % (Auto) Neut % (Auto) Lymph % (Auto) [place] % (Auto) Eos % (Auto) Baso % (Auto) Lymph # (Auto) [place] # (Auto) Eos # (Auto) Baso # (Auto) Abs Immat Gran (auto) Absolute Neuts (auto) Absolute Nucleated RBC Nucleated RBC % POC Capillary Glucose 97 85 Urine Color Yellow Urine Appearance Clear Urine pH 6.5 Ur Specific [place] 1.006 Urine Protein Negative Urine Glucose (UA) Negative Urine Ketones Negative Ur Blood (Man) Negative Urine Nitrate Negative Urine Bilirubin Negative Urine Urobilinogen 0.2 Leukocyte Esterase Rfl Negative RPR HIV 1&2 Ab/P24 Ag 4thGn Blood Type Antibody Screen 02/07/24 05:22 WBC 11.6 H RBC 3.61 L Hgb 12.0 Hct 35.2 L MCV 97.5 MCH 33.2 MCHC 34.1 RDW 13.6 Plt Count 144 L MPV 11.9 H Immature Gran % (Auto) 1.1 H Neut % (Auto) 70.4 Lymph % (Auto) 21.1 [place] % (Auto) 6.5 Eos % (Auto) 0.6 Baso % (Auto) 0.3 Lymph # (Auto) 2.44 [place] # (Auto) 0.8 H Eos # (Auto) 0.1 Baso # (Auto) 0.0 Abs Immat Gran (auto) 0.13 H Absolute Neuts (auto) 8.2 H Absolute Nucleated RBC 0.000 Nucleated RBC % 0.0 POC Capillary Glucose Urine Color Urine Appearance Urine pH Ur Specific [place] Urine Protein Urine Glucose (UA) Urine Ketones Ur Blood (Man) Urine Nitrate Urine Bilirubin Urine Urobilinogen Leukocyte Esterase Rfl RPR Non-reactive HIV 1&2 Ab/P24 Ag 4thGn Negative Blood Type O Positive Antibody Screen Negative Discharge Plan Discharge Attending physician on discharge: Tomi Kolb Discharging Clinician: Tomi Kolb Patient Disposition: Home, Self-Care Activity: pelvic rest Diet: regular Discharge Instructions: Call or return if temperature above 100.4? F, increased abdominal pain, increased vaginal bleeding or any new problems. Stand Alone Forms: General Discharge Information Follow-up/Referrals: Tomi Kolb MD [Physician] - [facility]
[2024-02-07] MEDS: OXYTOCIN 30 UNITS/NS 500 ML 30 UNITS/500 ML BAG 125 UNITS IV CONT (17:59)
[2024-02-07] MEDS: IBUPROFEN 600 MG TABLET PO (19:34)
[2024-02-07] MEDS: ACETAMINOPHEN 325 MG TABLET 650 MG PO (19:35)
[2024-02-07] MEDS: WITCH HAZEL 40 PADS 1 PAD TOPICAL (19:36)
[2024-02-07] MEDS: BENZOCAINE 20% AER SPR (*SP) 56 GM CAN 1 SPRAY TOPICAL (19:36)
--- NOTE | 2024-02-07 20:33 | OBPPTRN ---
Patient transferred to post room #292 via wheelchair @ 2032. Support person present. Oriented to unit, room, information board, rooming in, admission packet and security measures. Patient verbalizes understanding.
[2024-02-07] MEDS: HYDROcodone/acetaminophen (*CRX) 5-325 MG TABLET 1 TAB PO (23:32)
[2024-02-08 01:30] VITALS: BP 117/56; PULSE 81; RESP 18; TEMP 36.1; O2SAT 98
[2024-02-08] MEDS: IBUPROFEN 600 MG TABLET PO ×4 (01:30→20:20)
[2024-02-08 04:20] LABS: Hematocrit 29.6 % (37.0-47.0)
[2024-02-08 05:10] VITALS: BP 122/64; PULSE 79; RESP 18; TEMP 36.6; O2SAT 99
[2024-02-08] MEDS: ACETAMINOPHEN 325 MG TABLET 650 MG PO ×2 (05:30→11:30)
[2024-02-08] MEDS: DOCUSATE SODIUM 100 MG CAPSULE PO ×2 (07:49→17:26)
[2024-02-08 07:50] VITALS: BP 119/69; PULSE 78; RESP 16; TEMP 36.3; O2SAT 100
[2024-02-08] MEDS: MULTIVIT/MIN/PREN/FOL AC/IRON TABLET 1 TAB PO (07:50)
[2024-02-08] MEDS: LANOLIN (LANSINOH) 7.5 GM CREAM 1 APPLIC TOPICAL (07:51)
--- NOTE | 2024-02-08 08:33 | PM.OBPNVD ---
OB - PN: Subj Subjective Date/time seen: 02/08/24 08:33 Narrative: Pain OK. Would like circumcision for son. OB - PN: Obj Data Labs 02/08/24 03:59 Labs: Laboratory Results - last 24 hr 02/07/24 02/07/24 02/07/24 05:22 12:01 13:58 Hgb Hct POC Capillary Glucose 97 83 RPR Non-reactive 02/07/24 02/07/24 02/08/24 15:10 16:54 03:59 Hgb 10.0 L Hct 29.6 L POC Capillary Glucose 62 L 63 L RPR OB - PN A/P Plan day: 1 Comments: A: PPD#1, doing well. P: Reviewed circ. Routine care. Exam Psych: Other: AVSS ABD soft, nontender, fundus firm EXT nontender
[2024-02-08] MEDS: PHENYLEPH/MINERAL OIL/PETROLAT OINTMENT 57 GM 1 APPLIC RECTAL (09:00)
[2024-02-08 11:30] VITALS: BP 127/72; PULSE 93; RESP 16; TEMP 36.7; O2SAT 100
--- NOTE | 2024-02-08 12:21 | WPDANLDPN2 ---
Anes-Prog Note L&D Date/Time: 02/08/24 12:21 Comfortable throughout: labor and delivery Neuraxial method: epidural Epidural/Spinal procedure site: clean & non-tender Neuro status: Neuro function grossly intact. Cardiovascular status: normal Respiratory status: normal Airway patency: baseline Mental status: baseline Post-Op hydration status: normal Vital Signs: Last Vital Signs Temp 36.6 C 02/08/24 05:10 Pulse 79 02/08/24 05:10 Resp 18 02/08/24 05:10 BP 122/64 02/08/24 05:10 Pulse Ox 99 02/08/24 05:10 O2 Del Method Room Air 02/07/24 21:07 Pain score (VAS): 3/10 I/O: Intake & Output 02/07/24 02/08/24 02/08/24 23:59 07:59 15:59 Intake Total 500 Output Total 625 Balance -125 Post-procedural complaints: none Patient feedback: Patient satisfied with anesthetic care.
[2024-02-08] MEDS: HYDROcodone/acetaminophen (*CRX) 5-325 MG TABLET 1 TAB PO ×2 (15:26→23:00)
[2024-02-08] MEDS: DIBUCAINE 1% OINTMENT 30 GM TUBE 1 APPLIC TOPICAL (15:31)
[2024-02-08] MEDS: WITCH HAZEL 40 PADS 1 PAD TOPICAL (15:33)
--- NOTE | 2024-02-08 17:45 | PC.NURSE ---
Introductions were made, then consulted with patient to assess needs related to . Mother led the conversation with her?plans to feed?her infant and the?experience so far. Encouraged understanding of the benefits of stimulating her breast consistently (pumping log given), responsive feeding, feeding on demand (aiming for 8-12 times in 24 hours, about every 2-3 hours), milk production, building/maintaining a milk supply, duration of feeding, signs of adequate intake/output and how to record on the feeding sheet. Mother works well with her attempting to breastfeed for a few minutes at some feedings. This was IVF and we discussed the hormonal nature of milk production and that each is different. She has a successful experience with her first baby and has a lot of doubt with the amount of colostrum she has produced today. Encouraged her that this is a typical amount for most new mothers and that she may still have a full milk supply with regular pumping. Even if she has a low milk supply, it benefits her and baby to continue as long as she is able to or desires to do so. Mother voiced understanding of responsive feedings, hand expressed colostrum, pumping schedule, milk production expectations and when to expect her supply to increase (by day 3-4). Patient states she will continue to try this plan for a week and see how her supply is. Patient has the phone number to call for questions or an appointment. Resources used for education were facilitated with the pumping log, Inpatient/outpatient resources, feeding sheet, name written on the communication board, and the mom/baby guide. Parents voiced understanding of information, demonstrated learning and will call if there is a request for assistance. Reported to the Primary RN.
[2024-02-08 19:20] VITALS: BP 125/57; PULSE 86; RESP 18; TEMP 36.8
[2024-02-09] MEDS: IBUPROFEN 600 MG TABLET PO ×2 (02:23→09:20)
[2024-02-09] MEDS: MULTIVIT/MIN/PREN/FOL AC/IRON TABLET 1 TAB PO (07:35)
[2024-02-09] MEDS: DOCUSATE SODIUM 100 MG CAPSULE PO (07:35)
[2024-02-09] MEDS: HYDROcodone/acetaminophen (*CRX) 5-325 MG TABLET 1 TAB PO ×2 (07:35→15:05)
[2024-02-09] MEDS: PHENYLEPH/MINERAL OIL/PETROLAT OINTMENT 57 GM 1 APPLIC RECTAL (07:36)
[2024-02-09 07:45] VITALS: BP 118/69; PULSE 73; RESP 16; TEMP 36.4; O2SAT 100
--- NOTE | 2024-02-09 07:57 | PC.NURSE ---
Patient viewed the discharge video Mother & Baby Care, The First Two Weeks . Patient was given the opportunity and encouraged to ask questions. Patient verbalized understanding of information shared and has been given the mother/baby guide for home reference.
--- NOTE | 2024-02-09 14:27 | PM.OBPNVD ---
OB - PN: Subj Subjective Date/time seen: 02/09/24 14:27 Narrative: Pain OK. Would like to go home. OB - PN: Obj Data Labs 02/08/24 03:59 OB - PN A/P Plan day: 2 Comments: A: PPD#2, doing well. P: Home to f/u 6 weeks. Exam Psych: Other: AVSS ABD soft, nontender, fundus firm EXT nontender
[2024-02-10 13:51] VITALS: BP 138/64; PULSE 88; RESP 18; TEMP 36.7; O2SAT 100
== END 2024-02-09 15:30 | disposition home or self-care (01) | DRG 807 ==
LOC: ANHLDR 17:58 → ANHOB2 20:39
PROVIDERS: Admitting Provider Obstetrics & Gynecology; PCP Family Medicine; Visit Provider Obstetrics & Gynecology
DX: O24.429 Gestational diabetes mellitus in childbirth, unspecified control (principal); Z37.0 Single live birth; Z3A.40 40 weeks gestation of pregnancy; O69.81X0 Labor and delivery complicated by cord around neck, without compression, not applicable or unspecified; O70.1 Second degree perineal laceration during delivery; O69.89X0 Labor and delivery complicated by other cord complications, not applicable or unspecified
CPT/HCPCS: 36415; 81003; 82948; 85014; 85018; 85025; 86592; 86703; 86850; 86900; 86901; 88307; A9270; G0432; J2590; J2795; J7030; J7120